=== PATIENT | female | born 1975 | race Caucasian/White ===

== ENCOUNTER 2018-02-13 08:09 | Emergency (ER) | payer OTHER ==
[2018-02-13] MEDS ORDERED: NS 1,000 ML IV ONE (08:32)
[2018-02-13 08:36] LABS: PLATELET COUNT 243 10^3/uL (150-400)
--- NOTE | 2018-02-13 08:48 | EDPHY ---
H & P Time Seen by Provider: 02/13/18 08:31 HPI/ROS: CHIEF COMPLAINT: Menorrhagia HISTORY OF PRESENT ILLNESS: This patient is a 42 y/o female complaining of heavy vaginal bleeding. Earlier in the month, she had menstrual bleeding for about 18 days, then stopped for two days. About 48 hours ago, she developed heavy bleeding with associated clots. She fills two pads every hour. Associated with mild suprapubic cramping, but has not taken any pain medication. H/o frequent menstrual periods over the past several years. 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 No prior sono or hormonal rx. She denies dizziness or weakness, endorses some shakiness this morning. REVIEW OF SYSTEMS: A 10 point review of systems was performed and is negative with the exception of the elements mentioned in the history of present illness. Past Medical/Surgical History: . Tubal ligation. Tonsillectomy and adenoidectomy. Social History: Friend at bedside. Employed. Lives in [place]. Physical Exam: General Appearance: Alert, pleasant Eyes: Pupils equal and round, no conjunctival pallor ENT, Mouth: Mucous membranes moist Neck: Normal inspection Respiratory: Lungs are clear to auscultation Cardiovascular: Regular rate and rhythm Gastrointestinal: Abdomen is soft and non-tender Neurological: A&O, nonfocal exam Skin: Warm and dry Extremities: Normal inspection Psychiatric: Mood and affect normal Constitutional: Initial Vital Signs Temperature (C) 37 C 02/13/18 08:15 Heart Rate 70 02/13/18 08:15 Respiratory Rate 16 02/13/18 08:15 Blood Pressure 139/81 H 02/13/18 08:15 O2 Sat (%) 94 02/13/18 08:15 O2 Delivery Mode Room Air Allergies/Adverse Reactions: No Known Allergies Allergy (Unverified 02/13/18 08:14) Home Medications: Medication Instructions Recorded Tranexamic Acid 2 tab PO TID #15 tablet 02/13/18 Medical Decision Making - Diagnostics Imaging Results: Imaging Impressions Pelvic/Renal Ultrasound 02/13/18 09:01 Impression: 1. Uterine leiomyoma measuring 2.1 cm. 2. Endometrial thickening up to 15 mm, top normal. 3. Right ovarian 3.4 cm simple cyst without evidence of ovarian torsion. Findings and recommendations discussed with Emergency Department physician, Thelma Harden, at 1011 hours, 02/13/2018. Final report concurs with initial preliminary interpretation. Imaging: Discussed imaging studies w/ call manager Radiologist ED Course/Re-evaluation: 42 y/o female presents with two days of heavy uterine bleeding. She is well- appearing on exam. Plan for labs including CBC, BHCG. IV established. Plan to administer 1L IV NS. Laboratory studies unremarkable. Hematocrit 44.6. BHCG negative. Plan for US pelvis for further evaluation. Discussed techniques for managing heavy uterine bleeding including NSAID medication such as ibuprofen 600mg daily, hormone therapy such as progesterone or other oral contraceptives, or TXA. Plan to administer 30mg IV Toradol. 10:[address] Chapman, radiologist. US pelvis shows small uterine fibroid and 3.4cm ovarian cyst. Results d/w patient. Patient prefers a non-hormonal rx for symptom relief. Plan to d/c home in good condition with prescription for TXA and referral to [facility]. Follow up and return precautions discussed. She is comfortable with this plan. Differential Diagnosis: includes though not limited to ectopic , miscarriage, severe anemia, hypotension - Data Points Laboratory Results: Laboratory Results 02/13/18 08:25 02/13/18 02/13/18 08:25 08:25 WBC 5.59 10^3/uL 10^3/uL (3.80-9.50) RBC 5.00 10^6/uL 10^6/uL (4.18-5.33) Hgb 15.5 g/dL g/dL (12.6-16.3) Hct 44.6 % % (38.0-47.0) MCV 89.2 fL fL (81.5-99.8) MCH 31.0 pg pg (27.9-34.1) MCHC 34.8 g/dL g/dL (32.4-36.7) RDW 12.5 % % (11.5-15.2) Plt Count 243 10^3/uL 10^3/uL (150-400) MPV 9.8 fL fL (8.7-11.7) Neut % (Auto) 66.8 % % (39.3-74.2) Lymph % (Auto) 22.0 % % (15.0-45.0) Boyle % (Auto) 8.8 % % (4.5-13.0) Eos % (Auto) 1.3 % % (0.6-7.6) Baso % (Auto) 0.9 % % (0.3-1.7) Nucleat RBC Rel Count 0.0 % % (0.0-0.2) Absolute Neuts (auto) 3.74 10^3/uL 10^3/uL (1.70-6.50) Absolute Lymphs (auto) 1.23 10^3/uL 10^3/uL (1.00-3.00) Absolute Monos (auto) 0.49 10^3/uL 10^3/uL (0.30-0.80) Absolute Eos (auto) 0.07 10^3/uL 10^3/uL (0.03-0.40) Absolute Basos (auto) 0.05 10^3/uL 10^3/uL (0.02-0.10) Absolute Nucleated RBC 0.00 10^3/uL 10^3/uL (0-0.01) Immature Gran % 0.2 % % (0.0-1.1) Immature Gran # 0.01 10^3/uL 10^3/uL (0.00-0.10) Beta HCG, Qual NEGATIVE Medications Given: Discontinued Medications Sodium Chloride (Ns) 1,000 mls @ 0 mls/hr IV EDNOW ONE; Wide Open PRN Reason: Protocol Stop: 02/13/18 08:33 Last Admin: 02/13/18 08:40 Dose: 1,000 mls Ketorolac Tromethamine (Toradol) 30 mg IVP EDNOW ONE Stop: 02/13/18 09:01 Last Admin: 02/13/18 09:11 Dose: 30 mg Departure - Departure Disposition: Home, Routine, Self-Care Clinical Impression: Abnormal uterine bleeding Condition: Good Instructions: Dysfunctional Uterine Bleeding (ED) Additional Instructions: 1. Take ibuprofen 600mg daily. 2. Take tranexamic acid as prescribed. 3. Follow up with gynecology for further evaluation. We have referred you to our [facility] bronc breaker. Your pelvic ultrasound today showed a small uterine fibroid as well as a 3.4cm ovarian cyst. 4. Return to the emergency department for continued heavy bleeding, increasing pain, weakness or fainting, or other worsening of condition. Referrals: LETY SALEH [Other] - As per Instructions Marlene Chambers MD [Medical Doctor] - As per Instructions Prescriptions: Tranexamic Acid 2 tab PO TID #15 tablet Report Scribed for: Thelma Harden Report Scribed by: Gricel Shepherd Date of Report: 02/13/18 Time of Report: 08:48 Physician Review and Approval Statement: 02/13/18 08:48 Portions of this note were transcribed by a medical office clerk. I personally performed a history, physical exam, medical decision making, and confirmed accuracy of information the transcribed note.
[2018-02-13] MEDS ORDERED: KETOROLAC 15 MG/1 ML SDV IVP ONE (09:00)
[2018-02-13 10:30] VITALS: BP 118/71; PULSE 68; RESP 18; TEMP 98.2; O2SAT 97
== END 2018-02-13 10:30 | disposition home or self-care (01) ==
DX: N93.9 Abnormal uterine and vaginal bleeding, unspecified (principal); E86.9 Volume depletion, unspecified
CPT/HCPCS: 96374; J1885